=== PATIENT | male | born 1995 | race Caucasian/White ===

== ENCOUNTER 2016-07-16 22:09 | Emergency (ER) | payer OTHER ==
[2016-07-16 23:25] LABS: BASO % 0.5 % (0.0-1.0); EOS # 0.3 K/mm3 (0.0-0.50); EOS % 3.1 % (0.0-3.0); LARGE UNSTAINED CELL # 0.2 K/mm3 (0.0-0.4); LYMPH # 2.4 K/mm3 (1.5-6.5); MEAN CORPUSCULAR HEMOGLOBIN 29.2 pg (27.0-33.0); MEAN CORPUSCULAR HGB CONC 35.7 g/dl (32.0-36.5); MEAN CORPUSCULAR VOLUME 81.6 fl (80.0-96.0); MONO # 0.5 K/mm3 (0.0-0.8); MONO % 5.5 % (0.0-5.0); NEUTROPHILS # 5.3 K/mm3 (1.8-7.7); NEUTROPHILS % 60.9 % (36.0-66.0); PLATELET COUNT, AUTOMATED 242 k/mm3 (150-450); RED CELL DISTRIBUTION WIDTH 12.8 % (11.5-14.5); WHITE BLOOD COUNT 8.7 K/mm3 (4.0-10.0)
--- NOTE | 2016-07-16 23:30 | REPUSA ---
CLINICAL HISTORY: Rule out DVT FINDINGS: Sonography of the left leg was performed with harvey scale and color Doppler. The visualized greater sa phenous vein, common femoral vein, superficial femoral vein, popliteal vein, and calf veins show norm al compressibility and flow. There are no findings to suggest deep venous thrombosis. IMPRESSION: 1. SONOGRAPHY SHOWS NO EVIDENCE OF DEEP VENOUS THROMBOSIS. 2. IF CLINICAL SYMPTOMS PERSIST, REPEAT EXAMINATION IS RECOMMENDED IN ONE WEEK. Thank you for your kind referral of this patient.
[2016-07-16 23:43] LABS: ANION GAP 7 MEQ/L (8-16); BLOOD UREA NITROGEN 17 MG/DL (7-18); CALCIUM LEVEL 8.9 MG/DL (8.5-10.1); CARBON DIOXIDE LEVEL 30 MEQ/L (21-32); CHLORIDE LEVEL 101 MEQ/L (98-107); CREATININE FOR GFR 0.81 MG/DL (0.70-1.30); GLUCOSE, FASTING 88 MG/DL (70-105); POTASSIUM SERUM 3.8 MEQ/L (3.5-5.1); SODIUM LEVEL 138 MEQ/L (136-145)
[2016-07-16 23:51] LABS: ERYTHROCYTE SEDIMENTATION RATE 5 mm/hr (0-15)
[2016-07-16] MEDS ORDERED: CEPHALEXIN 250 MG CAP As Ordered ONE (23:58)
[2016-07-17] MEDS ORDERED: NEOSPORIN OINT 0.9 GM PKT (FLOOR STOCK) As Ordered ONE (00:07)
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
--- NOTE | 2016-07-17 00:21 | EDDOCDS ---
Physician Documentation [facility] Name: Delfin Santos Age: 21 yrs Sex: Male : 1995 Arrival Date: 07/16/2016 Time: 22:09 Bed I5 / M5 Private MD: NO PRIMARY PHYSICIAN, . Disposition: 07/17/16 00:04 Discharged to Home/Self Care. Impression: Open wound of lower leg - LEFT LATERAL ANKLE, Cellulitis, unspecified. - Condition is Stable. - Discharge Instructions: Cellulitis, Wound Care, [id number]. - Prescriptions for Keflex 500 mg Oral Capsule - take 1 capsule by ORAL route every 6 hours for 10 days; 40 capsule. - Medication Reconciliation, Local Pharmacy Hours form. - Follow up: [facility]; When: 2 - 3 days; Reason: Recheck today's complaints, Continuance of care. - Problem is new. - Symptoms have improved. Historical: - Allergies: no known allergies; - Home Meds: 1. none - PMHx: none; - PSHx: leg surgery; Skin Graft; - Social history: Smoking status: Patient states former smoker of tobacco. No barriers to communication noted, The patient speaks fluent Albanian. - Family history: Not pertinent. - : The pt / caregiver states he / she is not on anticoagulants. Home medication list is obtained from the patient. - Exposure Risk Screening:: None identified. Vital Signs: 07/16 22:11 BP 158 / 73; Pulse 82; Resp 18 S; Temp 97.9(O); Pulse Ox 98% on R/A; Weight 108.86 kg / gr2 240 lbs (R); Height 5 ft. 11 in. (180.34 cm) (R); Pain 0/10; 07/17 00:08 BP 141 / 69; Pulse 62; Resp 18; Temp 99; Pulse Ox 97.6% ; ajs 07/16 22:11 Body Mass Index 33.47 (108.86 kg, 180.34 cm) gr2 MDM: 07/16 22:46 IV Saline Lock ordered. ck7 22:47 CBC with Diff Ordered. EDMS 22:47 MED Profile Ordered. EDMS 22:47 ESR Ordered. EDMS 22:47 CRP Ordered. EDMS 22:48 DVT US Lower Ordered. EDMS 22:48 Ankle, Complete Ordered. EDMS 23:42 CBC with Diff Reviewed. ck7 23:46 MED Profile Reviewed. ck7 23:46 CRP Reviewed. ck7 23:54 Cephalexin 500 mg PO once ordered. ck7 23:55 CBC with Diff Reviewed. ck7 23:55 ESR Reviewed. ck7 07/17 00:04 Wound Care ordered. ck7 00:12 Financial registration complete. hs2 Administered Medications: 00:01 Drug: Cephalexin 500 mg [cephalexin 250 mg capsule (2 caps)] Route: PO; js15 Signatures: Dispatcher [employer] EDMS Nate Jolley, RPA-C RPA-Cck7 Natacha Moe,RN RN js15 Edie Arceo, Reg Reg hs2 Darling Lazaro,RN RN tm5 MTDD
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
--- NOTE | 2016-07-19 01:22 | EDDOCDS ---
Physician Documentation [facility] Name: Delfin Santos Age: 21 yrs Sex: Male : 1995 Arrival Date: 07/16/2016 Time: 22:09 Bed I5 / M5 Private MD: NO PRIMARY PHYSICIAN, . Disposition: 07/17/16 00:04 Discharged to Home/Self Care. Impression: Open wound of lower leg - LEFT LATERAL ANKLE, Cellulitis, unspecified. - Condition is Stable. - Discharge Instructions: Cellulitis, Wound Care, [id number]. - Prescriptions for Keflex 500 mg Oral Capsule - take 1 capsule by ORAL route every 6 hours for 10 days; 40 capsule. - Medication Reconciliation, Local Pharmacy Hours form. - Follow up: [facility]; When: 2 - 3 days; Reason: Recheck today's complaints, Continuance of care. - Problem is new. - Symptoms have improved. Historical: - Allergies: no known allergies; - Home Meds: 1. none - PMHx: none; - PSHx: leg surgery; Skin Graft; - Social history: Smoking status: Patient states former smoker of tobacco. No barriers to communication noted, The patient speaks fluent Bermudian. - Family history: Not pertinent. - : The pt / caregiver states he / she is not on anticoagulants. Home medication list is obtained from the patient. - Exposure Risk Screening:: None identified. Vital Signs: 07/16 22:11 BP 158 / 73; Pulse 82; Resp 18 S; Temp 97.9(O); Pulse Ox 98% on R/A; Weight 108.86 kg / gr2 240 lbs (R); Height 5 ft. 11 in. (180.34 cm) (R); Pain 0/10; 07/17 00:08 BP 141 / 69; Pulse 62; Resp 18; Temp 99; Pulse Ox 97.6% ; ajs 07/16 22:11 Body Mass Index 33.47 (108.86 kg, 180.34 cm) gr2 MDM: 07/16 22:46 IV Saline Lock ordered. ck7 22:47 CBC with Diff Ordered. EDMS 22:47 MED Profile Ordered. EDMS 22:47 ESR Ordered. EDMS 22:47 CRP Ordered. EDMS 22:48 DVT US Lower Ordered. EDMS 22:48 Ankle, Complete Ordered. EDMS 23:42 CBC with Diff Reviewed. ck7 23:46 MED Profile Reviewed. ck7 23:46 CRP Reviewed. ck7 23:54 Cephalexin 500 mg PO once ordered. ck7 23:55 CBC with Diff Reviewed. ck7 23:55 ESR Reviewed. ck7 07/17 00:04 Wound Care ordered. ck7 00:12 Financial registration complete. hs2 00:35 [facility] Payment Agreement was scanned into [employer] and attached to record. hs2 18:03 T-Sheet-- Draft Copy was scanned into [employer] and attached to record. klr Administered Medications: 00:01 Drug: Cephalexin 500 mg [cephalexin 250 mg capsule (2 caps)] Route: PO; js15 Signatures: Dispatcher [employer] EDMS Nate Jolley, JOHANAC RPA-Cck7 Natacha Moe,RN RN js15 Edie Arceo, Reg Reg hs2 Tali Waller Tonya,RN RN tm5 The chart was reviewed and I authenticate all verbal orders and agree with the evaluation and treatment provided.Attachments: 00:35 [facility] Payment Agreement hs2 18:03 T-Sheet-- Draft Copy klr Chart Complete MTDD
--- NOTE | 2016-07-19 01:22 | EDDOCDS ---
Physician Documentation [facility] Name: Delfin Santos Age: 21 yrs Sex: Male : 1995 Arrival Date: 07/16/2016 Time: 22:09 Bed I5 / M5 Private MD: NO PRIMARY PHYSICIAN, . Disposition: 07/17/16 00:04 Discharged to Home/Self Care. Impression: Open wound of lower leg - LEFT LATERAL ANKLE, Cellulitis, unspecified. - Condition is Stable. - Discharge Instructions: Cellulitis, Wound Care, Vozm-un-Kaal. - Prescriptions for Keflex 500 mg Oral Capsule - take 1 capsule by ORAL route every 6 hours for 10 days; 40 capsule. - Medication Reconciliation, Local Pharmacy Hours form. - Follow up: [facility]; When: 2 - 3 days; Reason: Recheck today's complaints, Continuance of care. - Problem is new. - Symptoms have improved. Historical: - Allergies: no known allergies; - Home Meds: 1. none - PMHx: none; - PSHx: leg surgery; Skin Graft; - Social history: Smoking status: Patient states former smoker of tobacco. No barriers to communication noted, The patient speaks fluent Luxembourger. - Family history: Not pertinent. - : The pt / caregiver states he / she is not on anticoagulants. Home medication list is obtained from the patient. - Exposure Risk Screening:: None identified. Vital Signs: 07/16 22:11 BP 158 / 73; Pulse 82; Resp 18 S; Temp 97.9(O); Pulse Ox 98% on R/A; Weight 108.86 kg / gr2 240 lbs (R); Height 5 ft. 11 in. (180.34 cm) (R); Pain 0/10; 07/17 00:08 BP 141 / 69; Pulse 62; Resp 18; Temp 99; Pulse Ox 97.6% ; ajs 07/16 22:11 Body Mass Index 33.47 (108.86 kg, 180.34 cm) gr2 MDM: 07/16 22:46 IV Saline Lock ordered. ck7 22:47 CBC with Diff Ordered. EDMS 22:47 MED Profile Ordered. EDMS 22:47 ESR Ordered. EDMS 22:47 CRP Ordered. EDMS 22:48 DVT US Lower Ordered. EDMS 22:48 Ankle, Complete Ordered. EDMS 23:42 CBC with Diff Reviewed. ck7 23:46 MED Profile Reviewed. ck7 23:46 CRP Reviewed. ck7 23:54 Cephalexin 500 mg PO once ordered. ck7 23:55 CBC with Diff Reviewed. ck7 23:55 ESR Reviewed. ck7 07/17 00:04 Wound Care ordered. ck7 00:12 Financial registration complete. hs2 00:35 [facility] Payment Agreement was scanned into [employer] and attached to record. hs2 18:03 T-Sheet-- Draft Copy was scanned into [employer] and attached to record. klr Administered Medications: 00:01 Drug: Cephalexin 500 mg [cephalexin 250 mg capsule (2 caps)] Route: PO; js15 Signatures: Dispatcher [employer] EDMS Nate Jolley, JOHANAC RPA-Cck7 Natacha Moe,RN RN js15 Edie Arceo, Reg Reg hs2 Tali Waller Tonya,RN RN tm5 The chart was reviewed and I authenticate all verbal orders and agree with the evaluation and treatment provided.Attachments: 00:35 [facility] Payment Agreement hs2 18:03 T-Sheet-- Draft Copy klr Chart Complete MTDD
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
--- NOTE | 2016-07-19 20:09 | EDDOCDS ---
Physician Documentation [facility] Name: Delfin Santos Age: 21 yrs Sex: Male : 1995 Arrival Date: 07/16/2016 Time: 22:09 Bed I5 / M5 Private MD: NO PRIMARY PHYSICIAN, . Disposition: 07/17/16 00:04 Discharged to Home/Self Care. Impression: Open wound of lower leg - LEFT LATERAL ANKLE, Cellulitis, unspecified. - Condition is Stable. - Discharge Instructions: Cellulitis, Wound Care, [id number]. - Prescriptions for Keflex 500 mg Oral Capsule - take 1 capsule by ORAL route every 6 hours for 10 days; 40 capsule. - Medication Reconciliation, Local Pharmacy Hours form. - Follow up: [facility]; When: 2 - 3 days; Reason: Recheck today's complaints, Continuance of care. - Problem is new. - Symptoms have improved. Historical: - Allergies: no known allergies; - Home Meds: 1. none - PMHx: none; - PSHx: leg surgery; Skin Graft; - Social history: Smoking status: Patient states former smoker of tobacco. No barriers to communication noted, The patient speaks fluent Bhutanese. - Family history: Not pertinent. - : The pt / caregiver states he / she is not on anticoagulants. Home medication list is obtained from the patient. - Exposure Risk Screening:: None identified. Vital Signs: 07/16 22:11 BP 158 / 73; Pulse 82; Resp 18 S; Temp 97.9(O); Pulse Ox 98% on R/A; Weight 108.86 kg / gr2 240 lbs (R); Height 5 ft. 11 in. (180.34 cm) (R); Pain 0/10; 07/17 00:08 BP 141 / 69; Pulse 62; Resp 18; Temp 99; Pulse Ox 97.6% ; ajs 07/16 22:11 Body Mass Index 33.47 (108.86 kg, 180.34 cm) gr2 MDM: 07/16 22:46 IV Saline Lock ordered. ck7 22:47 CBC with Diff Ordered. EDMS 22:47 MED Profile Ordered. EDMS 22:47 ESR Ordered. EDMS 22:47 CRP Ordered. EDMS 22:48 DVT US Lower Ordered. EDMS 22:48 Ankle, Complete Ordered. EDMS 23:42 CBC with Diff Reviewed. ck7 23:46 MED Profile Reviewed. ck7 23:46 CRP Reviewed. ck7 23:54 Cephalexin 500 mg PO once ordered. ck7 23:55 CBC with Diff Reviewed. ck7 23:55 ESR Reviewed. ck7 07/17 00:04 Wound Care ordered. ck7 00:12 Financial registration complete. hs2 00:35 [facility] Payment Agreement was scanned into [employer] and attached to record. hs2 18:03 T-Sheet-- Draft Copy was scanned into [employer] and attached to record. klr Administered Medications: 00:01 Drug: Cephalexin 500 mg [cephalexin 250 mg capsule (2 caps)] Route: PO; js15 Signatures: Dispatcher [employer] EDMS Nate Jolley, JOHANAC RPA-Cck7 Ntaacha Moe,RN RN js15 Edie Arceo, Reg Reg hs2 Tali Waller Tonya,RN RN tm5 The chart was reviewed and I authenticate all verbal orders and agree with the evaluation and treatment provided.Attachments: 00:35 [facility] Payment Agreement hs2 18:03 T-Sheet-- Draft Copy klr Chart Complete MTDD
--- NOTE | 2016-07-19 20:09 | EDDOCDS ---
Physician Documentation [facility] Name: Delfin Santos Age: 21 yrs Sex: Male : 1995 Arrival Date: 07/16/2016 Time: 22:09 Bed I5 / M5 Private MD: NO PRIMARY PHYSICIAN, . Disposition: 07/17/16 00:04 Discharged to Home/Self Care. Impression: Open wound of lower leg - LEFT LATERAL ANKLE, Cellulitis, unspecified. - Condition is Stable. - Discharge Instructions: Cellulitis, Wound Care, [id number]. - Prescriptions for Keflex 500 mg Oral Capsule - take 1 capsule by ORAL route every 6 hours for 10 days; 40 capsule. - Medication Reconciliation, Local Pharmacy Hours form. - Follow up: [facility]; When: 2 - 3 days; Reason: Recheck today's complaints, Continuance of care. - Problem is new. - Symptoms have improved. Historical: - Allergies: no known allergies; - Home Meds: 1. none - PMHx: none; - PSHx: leg surgery; Skin Graft; - Social history: Smoking status: Patient states former smoker of tobacco. No barriers to communication noted, The patient speaks fluent Mozambican. - Family history: Not pertinent. - : The pt / caregiver states he / she is not on anticoagulants. Home medication list is obtained from the patient. - Exposure Risk Screening:: None identified. Vital Signs: 07/16 22:11 BP 158 / 73; Pulse 82; Resp 18 S; Temp 97.9(O); Pulse Ox 98% on R/A; Weight 108.86 kg / gr2 240 lbs (R); Height 5 ft. 11 in. (180.34 cm) (R); Pain 0/10; 07/17 00:08 BP 141 / 69; Pulse 62; Resp 18; Temp 99; Pulse Ox 97.6% ; ajs 07/16 22:11 Body Mass Index 33.47 (108.86 kg, 180.34 cm) gr2 MDM: 07/16 22:46 IV Saline Lock ordered. ck7 22:47 CBC with Diff Ordered. EDMS 22:47 MED Profile Ordered. EDMS 22:47 ESR Ordered. EDMS 22:47 CRP Ordered. EDMS 22:48 DVT US Lower Ordered. EDMS 22:48 Ankle, Complete Ordered. EDMS 23:42 CBC with Diff Reviewed. ck7 23:46 MED Profile Reviewed. ck7 23:46 CRP Reviewed. ck7 23:54 Cephalexin 500 mg PO once ordered. ck7 23:55 CBC with Diff Reviewed. ck7 23:55 ESR Reviewed. ck7 07/17 00:04 Wound Care ordered. ck7 00:12 Financial registration complete. hs2 00:35 [facility] Payment Agreement was scanned into [employer] and attached to record. hs2 18:03 T-Sheet-- Draft Copy was scanned into [employer] and attached to record. klr Administered Medications: 00:01 Drug: Cephalexin 500 mg [cephalexin 250 mg capsule (2 caps)] Route: PO; js15 Signatures: Dispatcher [employer] EDMS Nate Jolley, JOHANAC RPA-Cck7 Natacha Moe,RN RN js15 Edie Arceo, Reg Reg hs2 Tali Waller Tonya,RN RN tm5 The chart was reviewed and I authenticate all verbal orders and agree with the evaluation and treatment provided.Attachments: 00:35 [facility] Payment Agreement hs2 18:03 T-Sheet-- Draft Copy klr Chart Complete MTDD
== END 2016-07-17 18:03 | disposition home or self-care (01) ==
LOC: M ED 22:09
DX: S91.002A Unspecified open wound, left ankle, initial encounter (principal); X58.XXXA Exposure to other specified factors, initial encounter; Y92.89 Other specified places as the place of occurrence of the external cause; Y93.89 Activity, other specified; Y99.8 Other external cause status; L03.116 Cellulitis of left lower limb; Z87.891 Personal history of nicotine dependence

== ENCOUNTER → 2017-06-01 | Outpatient (REF) | payer OTHER ==
[2017-06-01 15:05] LABS: BASO % 0.8 % (0.0-1.0); EOS # 0.2 10^3/uL (0.0-0.50); EOS % 3.2 % (0.0-3.0); HEMATOCRIT 42.8 % (42.0-52.0); HEMOGLOBIN 14.9 g/dl (14.0-18.0); IMMATURE GRANULOCYTE % 0.2 % (0-0); LYMPH # 1.8 10^3/uL (1.5-6.5); LYMPH % 34.8 % (24.0-44.0); MEAN CORPUSCULAR HEMOGLOBIN 28.7 pg (27.0-33.0); MEAN CORPUSCULAR HGB CONC 34.8 g/dl (32.0-36.5); MEAN CORPUSCULAR VOLUME 82.3 fl (80.0-96.0); MONO # 0.4 10^3/uL (0.0-0.8); MONO % 7.4 % (0.0-5.0); NEUTROPHILS # 2.8 10^3/uL (1.8-7.7); NEUTROPHILS % 53.6 % (36.0-66.0); PLATELET COUNT, AUTOMATED 226 10^3/uL (150-450); RED CELL DISTRIBUTION WIDTH 12.3 % (11.5-14.5); WHITE BLOOD COUNT 5.3 10^3/uL (4.0-10.0)
[2017-06-01 15:19] LABS: ALBUMIN 4.5 GM/DL (3.2-5.2); ALKALINE PHOSPHATASE 57 U/L (45-117); ALT/SGPT 72 U/L (12-78); ANION GAP 5 MEQ/L (8-16); AST/SGOT 31 U/L (7-37); BILIRUBIN,TOTAL 0.6 MG/DL (0.2-1.0); BLOOD UREA NITROGEN 18 MG/DL (7-18); CALCIUM LEVEL 8.8 MG/DL (8.5-10.1); CARBON DIOXIDE LEVEL 31 MEQ/L (21-32); CHLORIDE LEVEL 104 MEQ/L (98-107); CHOLESTEROL LEVEL 175 MG/DL (<200); CHOLESTEROL RISK RATIO 4.729 (<5); CREATININE FOR GFR 0.86 MG/DL (0.70-1.30); GLOMERULAR FILTRATION RATE > 60.0 (>60); GLUCOSE, FASTING 86 MG/DL (70-105); HDL CHOLESTEROL 37 MG/DL (>40); LDL CHOLESTEROL 117.6 MG/DL (<100); NON-HDL-C 138 MG/DL; POTASSIUM SERUM 4.1 MEQ/L (3.5-5.1); SODIUM LEVEL 140 MEQ/L (136-145); TOTAL PROTEIN 7.5 GM/DL (6.4-8.2); TRIGLYCERIDES LEVEL 102 MG/DL (<150)
[2017-06-01 15:24] LABS: TOTAL 25(OH) VITAMIN D 12.9 NG/ML (30.0-100.0)
== END ==
LOC: M SFHCSACK 10:20
DX: Z00.00 Encounter for general adult medical examination without abnormal findings (principal); Z13.220 Encounter for screening for lipoid disorders; Z13.21 Encounter for screening for nutritional disorder

== ENCOUNTER 2017-07-08 12:08 | Emergency (ER) | payer OTHER | END 2017-07-08 13:42 | disposition home or self-care (01) | LOC: M ED 12:08 | DX: R55 Syncope and collapse (principal); E16.2 Hypoglycemia, unspecified; J45.909 Unspecified asthma, uncomplicated | CPT/HCPCS: 93005 ==

== ENCOUNTER → 2017-09-11 | Outpatient (REF) | payer OTHER ==
[2017-09-11 14:56] LABS: BASO % 0.3 % (0.0-1.0); EOS # 0.2 10^3/uL (0.0-0.50); EOS % 2.6 % (0.0-3.0); HEMATOCRIT 41.1 % (42.0-52.0); HEMOGLOBIN 14.1 g/dl (13.5-17.5); IMMATURE GRANULOCYTE % 0.3 % (0-3.0); LYMPH # 1.9 10^3/uL (1.5-6.5); LYMPH % 33.4 % (24.0-44.0); MEAN CORPUSCULAR HGB CONC 34.3 g/dl (32.0-36.5); MEAN CORPUSCULAR VOLUME 81.7 fl (80.0-96.0); MONO # 0.4 10^3/uL (0.0-0.8); MONO % 6.6 % (0.0-5.0); NEUTROPHILS # 3.2 10^3/uL (1.8-7.7); NEUTROPHILS % 56.8 % (36.0-66.0); PLATELET COUNT, AUTOMATED 199 10^3/uL (150-450); RED BLOOD COUNT 5.03 10^6/uL (4.30-6.10); RED CELL DISTRIBUTION WIDTH 12.2 % (11.5-14.5); WHITE BLOOD COUNT 5.7 10^3/uL (4.0-10.0)
[2017-09-11 15:26] LABS: TOTAL 25(OH) VITAMIN D 47.4 NG/ML (30.0-100.0)
[2017-09-11 15:28] LABS: ALBUMIN 4.3 GM/DL (3.2-5.2); ALBUMIN/GLOBULIN RATIO 1.39 (1.00-1.93); ALKALINE PHOSPHATASE 65 U/L (45-117); ALT/SGPT 90 U/L (12-78); ANION GAP 4 MEQ/L (8-16); AST/SGOT 28 U/L (7-37); BILIRUBIN,TOTAL 0.5 MG/DL (0.2-1.0); BLOOD UREA NITROGEN 19 MG/DL (7-18); CALCIUM LEVEL 8.9 MG/DL (8.5-10.1); CARBON DIOXIDE LEVEL 30 MEQ/L (21-32); CHLORIDE LEVEL 108 MEQ/L (98-107); CREATININE FOR GFR 0.78 MG/DL (0.70-1.30); GLOMERULAR FILTRATION RATE > 60.0 (>60); GLUCOSE, FASTING 80 MG/DL (70-100); POTASSIUM SERUM 4.4 MEQ/L (3.5-5.1); SODIUM LEVEL 142 MEQ/L (136-145); TOTAL PROTEIN 7.4 GM/DL (6.4-8.2)
== END ==
LOC: M SFHCSACK 09:17
DX: E55.9 Vitamin D deficiency, unspecified (principal); E78.00 Pure hypercholesterolemia, unspecified
CPT/HCPCS: 80053

== ENCOUNTER → 2017-10-16 | Outpatient (CLI) | payer OTHER ==
[2017-10-16 11:28] LABS: BASO % 0.2 % (0.0-1.0); EOS % 0.2 % (0.0-3.0); HEMATOCRIT 41.3 % (42.0-52.0); HEMOGLOBIN 14.4 g/dl (13.5-17.5); IMMATURE GRANULOCYTE % 0.3 % (0-3.0); LYMPH # 0.9 10^3/uL (1.5-6.5); LYMPH % 7.6 % (24.0-44.0); MEAN CORPUSCULAR HEMOGLOBIN 28.3 pg (27.0-33.0); MEAN CORPUSCULAR HGB CONC 34.9 g/dl (32.0-36.5); MEAN CORPUSCULAR VOLUME 81.1 fl (80.0-96.0); MONO # 1.3 10^3/uL (0.0-0.8); MONO % 11.1 % (0.0-5.0); NEUTROPHILS # 9.3 10^3/uL (1.8-7.7); NEUTROPHILS % 80.6 % (36.0-66.0); PLATELET COUNT, AUTOMATED 190 10^3/uL (150-450); RED BLOOD COUNT 5.09 10^6/uL (4.30-6.10); RED CELL DISTRIBUTION WIDTH 12.3 % (11.5-14.5); WHITE BLOOD COUNT 11.5 10^3/uL (4.0-10.0)
[2017-10-16 12:15] LABS: ALBUMIN 4.3 GM/DL (3.2-5.2); ALBUMIN/GLOBULIN RATIO 1.16 (1.00-1.93); ALKALINE PHOSPHATASE 106 U/L (45-117); ALT/SGPT 241 U/L (12-78); AMYLASE 55 U/L (25-115); ANION GAP 7 MEQ/L (8-16); AST/SGOT 97 U/L (7-37); BILIRUBIN,TOTAL 1.6 MG/DL (0.2-1.0); BLOOD UREA NITROGEN 15 MG/DL (7-18); CALCIUM LEVEL 9.1 MG/DL (8.5-10.1); CARBON DIOXIDE LEVEL 30 MEQ/L (21-32); CHLORIDE LEVEL 99 MEQ/L (98-107); CREATININE FOR GFR 1.05 MG/DL (0.70-1.30); GLOMERULAR FILTRATION RATE > 60.0 (>60); GLUCOSE, FASTING 92 MG/DL (70-100); LIPASE 92 U/L (73-393); POTASSIUM SERUM 4.3 MEQ/L (3.5-5.1); SODIUM LEVEL 136 MEQ/L (136-145)
[2017-10-16 15:40] LABS: HEPATITIS B SURFACE ANTIGEN NEGATIVE (NEGATIVE)
[2017-10-16 16:07] LABS: HEPATITIS B CORE ANTIBODY IGM NEGATIVE (NEGATIVE)
[2017-10-16 16:10] LABS: HEPATITIS A ANTIBODY IGM NEGATIVE (NEGATIVE)
[2017-10-21 00:06] LABS: EBV AB TO NUCLEAR ANTIGEN 76.8 U/mL (0.0-17.9)
[2017-10-21 00:06] LABS: EBV VIRAL CAPSID AG IgM <36.0 U/mL (0.0-35.9)
== END ==
LOC: M WUC 10:26
DX: R10.9 Unspecified abdominal pain (principal)

== ENCOUNTER → 2017-10-16 | Outpatient (CLI) | payer OTHER ==
[~2017-10-16] MED LIST: GASTROGRAFIN SOLUTION 30ML (Q9963) As Ordered; ISOVUE-370 76% 100ML VIAL (Q9967) As Ordered
== END ==
LOC: M RAD 11:25
DX: R10.9 Unspecified abdominal pain (principal)

== ENCOUNTER → 2018-02-15 | Outpatient (CLI) | payer OTHER | LOC: M WUC 18:18 | DX: R06.02 Shortness of breath (principal); M25.571 Pain in right ankle and joints of right foot ==